=== PATIENT | male | born 1950 | race Caucasian/White ===

== ENCOUNTER 2021-02-04 15:59 | Inpatient (IN) | payer OTHER, SELFPAY ==
[~2021-02-04] VITALS: Ht 157.5 cm; Wt 65.8 kg
[~2021-02-04 15:59] MED LIST: ALFU10TA10 PO; ASA81 PO; CLOP300T2 PO; GLIP5TAB13 PO; LIP40 PO; NOR10 PO; RAMI10CA32 PO; TAMS-11 PO
[2021-02-04 16:06] VITALS: BP_SYST 149
--- NOTE | 2021-02-04 16:26 | NUR ---
Placed in room 4 . Placed on towel sewer, blood pressure machine and pulse oximeter. To gown for exam. Side rails up.
--- NOTE | 2021-02-04 16:30 | NUR ---
ER DR. TRAN AT THE BEDSIDE EXAMINING PT
--- NOTE | 2021-02-04 16:35 | NUR ---
PT BIB C/O LAC TO FOREHEAD. PT WAS UP ON A LATTER OUTSIDE HANGING LIGHTS WHEN HE LOST HIS BALANCE AND FELL. PT HAS LAC TO FOREHEAD, PRESENTS WITH GAUZE IN PLACE, NO ACTIVE BLEEDING UPON ARRIVAL. PT ALSO HAS SMALL ABRASIONS TO RIGHT PALM OF HAND AND RIGHT KHANNA AND KNEE AREA, NO BLEEDING. PT IS AAOX4, V/S STABLE UPON ARRIVAL
[2021-02-04] MEDS ORDERED: DEXTROSE 10%-WATER 500 ML IV SCH (16:45)
--- NOTE | 2021-02-04 17:09 | NUR ---
Patient transported to radiology via GURNEY, accompanied by STAFF.
[2021-02-04 17:26] LABS: BASOPHILS % (AUTO) 0.4 % (0.0-2.0); EOSINOPHILS # (AUTO) 0.1 K/uL (0.0-0.4); HEMATOCRIT 38.9 % (36-54); HEMOGLOBIN 12.3 g/dL (14.0-18.0); LYMPHOCYTES # (AUTO) 2.1 K/uL (1.0-5.5); LYMPHOCYTES % (AUTO) 29.5 % (20.5-51.5); MEAN CORPUSCULAR HEMOGLOBIN 27 pg (27-31); MEAN CORPUSCULAR HGB CONC 32 % (32-36); MEAN CORPUSCULAR VOLUME 86 fL (79.0-98.0); MONOCYTES # (AUTO) 0.6 K/uL (0.0-1.0); MONOCYTES % (AUTO) 7.7 % (1.7-9.3); NEUTROPHILS # (AUTO) 4.4 K/uL (1.8-7.7); NEUTROPHILS % (AUTO) 61.4 % (40.0-70.0); PLATELET COUNT (AUTO) 274 K/uL (130-430); RED BLOOD CELL COUNT(AUTO) 4.51 MIL/uL (4.2-6.2); RED CELL DISTRIBUTION WIDTH 15.4 % (9.0-15.0); WHITE BLOOD COUNT (AUTO) 7.2 K/uL (4.8-10.8)
[2021-02-04] MEDS ORDERED: LIDOCAINE/EPI 1% 1:100000 20 ML VIAL INJ ONE (17:30)
--- NOTE | 2021-02-04 17:30 | NUR ---
Patient has a 2 cm laceration to Right side of forehead. Dr. Gonzales applied sutures using sterile technique. Edges well approximated. Site cleansed with Betadine and NS. Dressing of non-stick applied to site. No bleeding noted. Pt tolerated well.
[2021-02-04] MEDS ORDERED: MUPIROCIN 2% TOPICAL OINTMENT 22 GM NS ONE (18:00)
[2021-02-04 18:03] LABS: ANION GAP 14 (5-15); CALCIUM 9.6 mg/dL (8.4-11.0); CHLORIDE 107 mmol/L (98-107); CREATININE 2.31 mg/dL (0.55-1.30); GLUCOSE 75 mg/dL (70-99); POTASSIUM 4.5 mmol/L (3.5-5.1); SODIUM SERUM 141 mmol/L (136-145); UREA NITROGEN, BLOOD 28 mg/dL (8-21)
--- NOTE | 2021-02-04 18:04 | NUR ---
ADMISSION ORDERS RECEIVED FROM DR. HANKINS
--- NOTE | 2021-02-04 18:06 | NUR ---
Radiology at bedside for CXR.
[2021-02-04 18:07] LABS: ALANINE AMINOTRANSFERASE 28 U/L (12-78); ALBUMIN 3.7 g/dL (3.4-4.8); ASPARTATE AMINOTRANSFERASE 17 U/L (10-37); TOTAL BILIRUBIN 0.3 mg/dL (0.0-1.0)
[2021-02-04] MEDS ORDERED: BACITRACIN 1 GM OINT TP ONE (18:21)
[2021-02-04] MEDS ORDERED: MIRT15TA7 PO (18:23)
[2021-02-04] MEDS ORDERED: METO25TA6 PO (18:23)
[2021-02-04] MEDS ORDERED: OMEP20CA15 PO (18:23)
[2021-02-04] MEDS ORDERED: HYDR-4038 PO (18:23)
[2021-02-04] MEDS ORDERED: RIVA10TA PO (18:23)
[2021-02-04] MEDS ORDERED: INSU100V3 SQ (18:23)
[2021-02-04] MEDS ORDERED: CHOL500052 PO (18:23)
--- NOTE | 2021-02-04 18:45 | NUR ---
COVID SWAB DONE AND SENT
--- NOTE | 2021-02-04 19:10 | NUR ---
REPORT GIVEN TO SUE GUTIERREZ FOR CONTINUING CARE
[2021-02-04 19:16] LABS: INR 1.1 (0.80-1.20); PROTHROMBIN TIME 10.8 SECS (9.5-12.5)
--- NOTE | 2021-02-04 20:09 | NUR ---
[facility] Admitted to [facility]LE unit. Will go to room 104 A. Belongings list completed. Complete and up to date summary report printed. SBAR report to be given at bedside with opportunity for questions.
--- NOTE | 2021-02-04 20:10 | NUR ---
Transfer to TELE via ACLS protocol. Licensed nurse present. IV present no signs or symptoms of infiltration.
--- NOTE | 2021-02-04 20:17 | NUR ---
ADMISSION: The patient, SABRINA CRENSHAW, 70 y/o, M admitted by JESSICA CHACON MD, was given written information regarding hospital policies, unit procedures and contact persons. Valuables were checked and pt was oriented to his room and surrounding.
[2021-02-04 20:30] VITALS: BP_SYST 155
[2021-02-04] MEDS ORDERED: MORPHINE 4 MG INJ. 4 MG/ML VIAL IVP PRN (20:30)
[2021-02-04] MEDS ORDERED: NALOXONE HCL 0.4 MG/ML AMP (NARCAN) IVP PRN (20:30)
[2021-02-04] MEDS ORDERED: ALBUTEROL SULFATE 0.083% 2.5 MG/3 ML VIAL.NEB INH PRN (20:30)
[2021-02-04] MEDS ORDERED: HYDROcodone/ACETAMIN 5-325 MG TAB (NORCO/ VICODIN) PO PRN (20:30)
[2021-02-04] MEDS ORDERED: hydrALAZINE HCL 20 MG/ML VIAL IVP PRN (20:45)
[2021-02-04 20:54] VITALS: BP_SYST 150
[2021-02-04] MEDS: TAMSULOSIN HCL 0.4 MG CAP PO SCH (21:02)
[2021-02-04] MEDS: METOPROLOL TARTRATE 25 MG TABLET PO SCH (21:02)
[2021-02-04] MEDS: D5NS 1,000 ML IV SCH (21:03)
[2021-02-04] MEDS: hydrALAZINE HCL 25 MG TABLET PO SCH (21:03)
[2021-02-05] VITALS: BP_SYST 144
--- NOTE | 2021-02-05 06:46 | NUR ---
PT IS RESTING COMFORTABLY IN BED. ACCUCHECK 150 THIS AM AND NO INSULIN COVERAGE NEEDED. ALL PT'S NEEDS WERE ATTENDED TO. WILL ENDORSE TO DAY SHIFT NURSE.
[2021-02-05 06:52] LABS: BASOPHILS % (AUTO) 0.3 % (0.0-2.0); EOSINOPHILS # (AUTO) 0.1 K/uL (0.0-0.4); EOSINOPHILS % (AUTO) 1.1 % (0.0-4.0); HEMATOCRIT 35.3 % (36-54); HEMOGLOBIN 11.5 g/dL (14.0-18.0); LYMPHOCYTES # (AUTO) 2.5 K/uL (1.0-5.5); LYMPHOCYTES % (AUTO) 31.6 % (20.5-51.5); MEAN CORPUSCULAR HEMOGLOBIN 28 pg (27-31); MEAN CORPUSCULAR HGB CONC 33 % (32-36); MEAN CORPUSCULAR VOLUME 86 fL (79.0-98.0); MONOCYTES # (AUTO) 0.6 K/uL (0.0-1.0); NEUTROPHILS # (AUTO) 4.7 K/uL (1.8-7.7); PLATELET COUNT (AUTO) 237 K/uL (130-430); RED CELL DISTRIBUTION WIDTH 15.6 % (9.0-15.0); WHITE BLOOD COUNT (AUTO) 7.9 K/uL (4.8-10.8)
[2021-02-05 07:24] LABS: ALANINE AMINOTRANSFERASE 22 U/L (12-78); ALBUMIN 3.1 g/dL (3.4-4.8); ANION GAP 13 (5-15); ASPARTATE AMINOTRANSFERASE 11 U/L (10-37); CHLORIDE 110 mmol/L (98-107); CREATININE 2.12 mg/dL (0.55-1.30); GLUCOSE 172 mg/dL (70-99); POTASSIUM 4.3 mmol/L (3.5-5.1); SODIUM SERUM 143 mmol/L (136-145); TOTAL BILIRUBIN 0.3 mg/dL (0.0-1.0); UREA NITROGEN, BLOOD 25 mg/dL (8-21)
[2021-02-05 08:00] VITALS: BP_SYST 142
[2021-02-05] MEDS: lisinopriL 20 MG TABLET PO SCH (09:21)
[2021-02-05] MEDS: ASPIRIN 81 MG TAB.CHEW PO SCH (09:22)
[2021-02-05] MEDS: PANTOPRAZOLE SODIUM 40 MG TAB PO SCH (09:22)
[2021-02-05] MEDS: ATORVASTATIN 20 MG TABLET PO SCH (09:22)
[2021-02-05] MEDS: MIRTAZAPINE 15 MG TABLET PO SCH (09:23)
[2021-02-05] MEDS: amLODIPine BESYLATE 10 MG TABLET PO SCH (09:24)
[2021-02-05] MEDS: METOPROLOL TARTRATE 25 MG TABLET PO SCH ×2 (09:24→21:09)
[2021-02-05] MEDS: hydrALAZINE HCL 25 MG TABLET PO SCH ×2 (09:25→21:10)
--- NOTE | 2021-02-05 10:46 | NUR ---
CONSULTATION: REASON FOR CONSULT: FALL CONSULTING PHYSICIAN: Richard THAYER ORDERED BY: OSWALDO SPOKE WITH [facility] [phone]
[2021-02-05] MEDS: D5NS 1,000 ML IV SCH (11:55)
[2021-02-05] MEDS: INSULIN REGULAR, HUMAN 100 UNITS/ML, 10 ML VIAL (humuLIN R) SUBCUT PRN ×3 (11:57→21:27)
[2021-02-05 12:23] VITALS: BP_SYST 139
--- NOTE | 2021-02-05 13:45 | NUR ---
Attending MD Dr Harper was called, Re: BS is high and to change or discontinue the IV D5W.
--- NOTE | 2021-02-05 14:26 | NUR ---
WOUND EVALUATION: Wound Consult received from Dr. Harper. Thank you, Dr. Harper, for the consult. Patient received in a [place] Bed with an Isoflex HAYLEY mattress, awake, alert, and oriented. Patient is able to turn in bed independently. Taye Score is a 21. Past Medical History: Hypertension, Renal Disease, Diabetes Mellitus, Coronary Artery Disease, Peripheral Arterial Disease, bilateral leg stents, Abdominal Stent, Prostate surgery. 3. Abdominal Stent. Recent Labs: Intrinsic factors that delay wound healing: Extrinsic factors that delay wound healing: Decreased mobility. Microbiology: Wound Assessment: , present on admission. Wound bed is . No odor, no drainage. birdie-wound intact. Measures . Recommend: Cleanse wound with normal saline. Place moisture barrier cream onto birdie-wound. Cover with foam dressing. Perform wound care daily, and as needed for dressing soiling or dislodgement. Also recommend: Reposition patient every 2 hours with pillow support and off-load pressure areas with pillows for pressure re-distribution. Offload, elevate and float bilateral heels with pillows. Perform skin care and monitor skin integrity Q shift. Use moisture barrier cream on buttocks and other moisture susceptible areas QID and as needed for soiling. Place patient on a low air-loss mattress. Addendum: 02/05/21 at 1446 by Twin Gautam RN Error, disregard note as it was entered prematurely. See newer complete note at [id number].
--- NOTE | 2021-02-05 14:33 | NUR ---
WOUND EVALUATION: Wound Consult received from Dr. Harper. Thank you, Dr. Harper, for the consult. Patient received in a [place] Bed with an Isoflex HAYLEY mattress, awake, alert, and oriented. Patient is able to turn in bed independently. Taye Score is a 21. Past Medical History: Hypertension, Renal Disease, Diabetes Mellitus, Coronary Artery Disease, Peripheral Arterial Disease, Prostate surgery, bilateral leg stents, Abdominal Stent. Recent Labs: WBC 7.9, RBC 4.10, hemoglobin 11.5, hematocrit 35.3, chloride 110, BUN 25, creatinine 2.12, glucose 172, POC glucose 326, albumin 3.1. No microbiology reports. Intrinsic factors that delay wound healing: Renal Disease, Diabetes Mellitus, Coronary Artery Disease, Peripheral Arterial Disease. Extrinsic factors that delay wound healing: Decreased mobility. Wound Assessment: 1. Right anterior forehead: Laceration, present on admission. Laceration is approximated with sutures. No odor, no drainage. Recommend: Cleanse laceration with normal saline. Apply nonadherent pad to the laceration, secure with paper tape per spouse's request. Hold nonadherent pad in place with hair net. Perform site care daily, and as needed for dressing soiling or dislodgment. 2. Right lateral forearm: Two small skin tears, present on admission. No odor, no drainage. Ecchymosis present on surrounding tissue. 3. Right lower extremity, inferior and lateral to knee: Skin tear, present on admission. No odor, scant sanguineous drainage. Birdie-skin tear area intact. Recommend: Cleanse skin tears with normal saline. Apply sure prep to birdie-skin tears. Cover with foam dressings. Perform skin tear care daily, and as needed for dressing soiling or dislodgement. Also recommend: Encourage and assist patient as needed with repositioning every 2 hours with pillow support and off-load pressure areas with pillows for pressure re-distribution. Offload, elevate and float bilateral heels with pillows. Perform skin care and monitor skin integrity Q shift.
--- NOTE | 2021-02-05 15:07 | NUR ---
Dietitian Recommendations * Cardiac, CCHO diet w/ Juan BID (supplement provides ~180 kcal/day, 5 gm protein/day) KEVIN, RD Please refer to Nutrition Assessment for details. Addendum: 02/05/21 at [address] Amended: Links added.
[2021-02-05 16:11] VITALS: BP_SYST 139
--- NOTE | 2021-02-05 19:20 | NUR ---
CHANGE OF SHIFT; endorsed by day shift. no distress. pt. fell at home. on fall risk, bed alarm on. call light at bedside.
[2021-02-05 20:15] VITALS: BP_SYST 145
--- NOTE | 2021-02-05 20:15 | NUR ---
NOTES: 'pt. checked, awake, alert, at bedside. pt. speaks Swiss and some lao. denies any pain at this time. IVF infuisng. Vs checked. on residential monitor and shows sinus rhythm. pt. fell at home with bruises and abrasions on rt. knee/child and forearm and some stitches on forehead. on room air. call light within reach.
--- NOTE | 2021-02-05 21:00 | NUR ---
NOTES: Bs checked with sliding scale coverage, due medications taken. due hs snack given. remain at bedside.
[2021-02-05] MEDS: TAMSULOSIN HCL 0.4 MG CAP PO SCH (21:08)
--- NOTE | 2021-02-05 22:00 | NUR ---
NOTES: pt. up and ambulated with to the restroom.
[2021-02-06 00:06] VITALS: BP_SYST 141
--- NOTE | 2021-02-06 00:15 | NUR ---
NOTES: pt. regan paniagua off. repositioned self.
--- NOTE | 2021-02-06 02:30 | NUR ---
NOTES: pt,. awakened, IV alarming. went back to sleep after. pt. call light within reach. bed alarm on.
[2021-02-06] MEDS: D5NS 1,000 ML IV SCH ×2 (04:29→21:03)
--- NOTE | 2021-02-06 05:00 | NUR ---
NOTES: pt. remain sleeping. no acute distress.
[2021-02-06] MEDS: INSULIN REGULAR, HUMAN 100 UNITS/ML, 10 ML VIAL (humuLIN R) SUBCUT PRN ×3 (06:19→21:02)
--- NOTE | 2021-02-06 06:30 | NUR ---
LATE ENTRY/ CLOSING NOTES; pt. remain asleep. IVF patent, infusing continuously. BS checked with sliding scale coverage. for further care and assistance. call light within reach.
[2021-02-06 07:49] LABS: ANION GAP 10 (5-15); CALCIUM 8.7 mg/dL (8.4-11.0); CHLORIDE 109 mmol/L (98-107); GLUCOSE 223 mg/dL (70-99); POTASSIUM 4.6 mmol/L (3.5-5.1); SODIUM SERUM 140 mmol/L (136-145); UREA NITROGEN, BLOOD 20 mg/dL (8-21)
[2021-02-06 07:50] LABS: BASOPHILS % (AUTO) 0.3 % (0.0-2.0); EOSINOPHILS # (AUTO) 0.2 K/uL (0.0-0.4); EOSINOPHILS % (AUTO) 2.8 % (0.0-4.0); HEMATOCRIT 33.5 % (36-54); HEMOGLOBIN 11.1 g/dL (14.0-18.0); LYMPHOCYTES # (AUTO) 2.5 K/uL (1.0-5.5); LYMPHOCYTES % (AUTO) 41.9 % (20.5-51.5); MEAN CORPUSCULAR HEMOGLOBIN 29 pg (27-31); MEAN CORPUSCULAR HGB CONC 33 % (32-36); MEAN CORPUSCULAR VOLUME 86 fL (79.0-98.0); MONOCYTES # (AUTO) 0.5 K/uL (0.0-1.0); MONOCYTES % (AUTO) 8.3 % (1.7-9.3); NEUTROPHILS # (AUTO) 2.8 K/uL (1.8-7.7); NEUTROPHILS % (AUTO) 46.7 % (40.0-70.0); PLATELET COUNT (AUTO) 214 K/uL (130-430); RED CELL DISTRIBUTION WIDTH 15.2 % (9.0-15.0)
[2021-02-06 07:55] LABS: ALANINE AMINOTRANSFERASE 23 U/L (12-78); ALBUMIN 2.9 g/dL (3.4-4.8); ASPARTATE AMINOTRANSFERASE 15 U/L (10-37); TOTAL BILIRUBIN 0.4 mg/dL (0.0-1.0)
[2021-02-06] MEDS: ASPIRIN 81 MG TAB.CHEW PO SCH (09:46)
[2021-02-06] MEDS: ATORVASTATIN 20 MG TABLET PO SCH (09:46)
[2021-02-06] MEDS: MIRTAZAPINE 15 MG TABLET PO SCH (09:46)
[2021-02-06] MEDS: lisinopriL 20 MG TABLET PO SCH (09:47)
[2021-02-06] MEDS: amLODIPine BESYLATE 10 MG TABLET PO SCH (09:48)
[2021-02-06] MEDS: hydrALAZINE HCL 25 MG TABLET PO SCH ×2 (09:48→20:54)
[2021-02-06] MEDS: PANTOPRAZOLE SODIUM 40 MG TAB PO SCH (09:49)
[2021-02-06] MEDS: METOPROLOL TARTRATE 25 MG TABLET PO SCH ×2 (09:49→20:54)
[2021-02-06] MEDS ORDERED: D5W 1,000 ML IV PRN (11:00)
[2021-02-06] MEDS ORDERED: GLUCOSE (DEXTROSE) ORAL GEL -Adults PO PRN (11:00)
[2021-02-06] MEDS ORDERED: DEXTROSE 50% JECT 50 ML DISP.SYRIN IVP PRN (11:00)
[2021-02-06 12:18] VITALS: BP_SYST 143
[2021-02-06 15:13] VITALS: BP_SYST 114
--- NOTE | 2021-02-06 19:30 | NUR ---
CHANGE OF SHIFT; endorsed by day shift. no distress, possible discharge tomorrow. call light within reach. on fall risk, bed alarm on.
--- NOTE | 2021-02-06 20:15 | NUR ---
NOTES; pt. checked, awake, resting with at bedside. no complaints manifested. IVF infusing. on timekeeping supervisor and shows sins rhythm. on room air.
[2021-02-06 20:30] VITALS: BP_SYST 146
[2021-02-06] MEDS: TAMSULOSIN HCL 0.4 MG CAP PO SCH (20:58)
--- NOTE | 2021-02-06 21:00 | NUR ---
NOTES: due medications given. BS checked 279 with sliding scale coverage. still at bedside. due hs snack given. pt. sitting at the edge of the bed.
--- NOTE | 2021-02-07 00:30 | NUR ---
NOTES: pt. up and ambulated to the restroom. no complaints manifested.
[2021-02-07 02:30] VITALS: BP_SYST 135
--- NOTE | 2021-02-07 03:02 | NUR ---
NOTES: IV site infiltrated, nurse William restated anther one on left forearm gauge # 20 and resume IVF> dreesing on rt. forehead with feww stitches changed with non adherent dressing, rt. lateral knne side, z shanta applied on abrasion, foam dressing applied.
[2021-02-07] MEDS: D5NS 1,000 ML IV SCH (06:12)
--- NOTE | 2021-02-07 06:30 | NUR ---
CLOSING NOTES; BS checked with sliding scale. due meds given. IV site patent and continuous. needs attende. went back to sleep. voided per urinal. for further care and assist. call light at bedside.
[2021-02-07] MEDS: INSULIN REGULAR, HUMAN 100 UNITS/ML, 10 ML VIAL (humuLIN R) SUBCUT PRN ×2 (07:06→11:44)
[2021-02-07 07:37] VITALS: BP_SYST 135
[2021-02-07 07:58] VITALS: BP_SYST 137
[2021-02-07] MEDS: PANTOPRAZOLE SODIUM 40 MG TAB PO SCH (08:37)
[2021-02-07] MEDS: hydrALAZINE HCL 25 MG TABLET PO SCH (08:37)
[2021-02-07] MEDS: ASPIRIN 81 MG TAB.CHEW PO SCH (08:37)
[2021-02-07] MEDS: amLODIPine BESYLATE 10 MG TABLET PO SCH (08:38)
[2021-02-07] MEDS: METOPROLOL TARTRATE 25 MG TABLET PO SCH (08:38)
[2021-02-07] MEDS: MIRTAZAPINE 15 MG TABLET PO SCH (08:39)
[2021-02-07] MEDS: lisinopriL 20 MG TABLET PO SCH (08:40)
[2021-02-07] MEDS: ATORVASTATIN 20 MG TABLET PO SCH (08:40)
--- NOTE | 2021-02-07 08:42 | NUR ---
OPENING NOTES PATIENT AAOX 4. LUNGS BILATERALLY CLEAR. ABDOMEN SOFT AND NON DISTENDED. HAS IV ACCESS ON THE LEFT FOREARM #20 WITH D5HNS AT 70CC/HR INFUSING ON WELL. HAS DRESSING ON THE RIGHT FOREAHEAD NON ADHERENT DRESSIB
--- NOTE | 2021-02-07 08:44 | NUR ---
NON ADHERENT DRESSING W/ HAIRNET ON IT ON THE FOREHEAD AND RT FOREARM OPTIFOAM DRESSING DRY AND INTACT. ABLE TO EAT BREAFKAST 100%. NO S/S OF DISTRESS NOR PAIN NOTED. BED LOW POSITION, ALARMED AND LOCKED. CALL LIGHT WITHIN REACH.
--- NOTE | 2021-02-07 10:18 | NUR ---
[employer] SALES REPRESENTATIVE CONSULTANT MS CRISTOBAL GIFFORD CALLED, RE: ARRANGED HOME HEALTH FOR PT, HOME MEDICATION. MS GIFFORD ASKED ME TO FAX H/P, MED LIST, RESULT OF COVID AND THE ORDER FOR HOME HEALTH. FAXED TO [facility]. INFORMED CHARGE NURSE KYM THAT PER [employer] CM MS CRISTOBAL GIFFORD PT CAN BE DISCHARGED NOW.
[2021-02-07 10:34] VITALS: BP_SYST 130
[2021-02-07 10:42] LABS: BASOPHILS % (AUTO) 0.5 % (0.0-2.0); EOSINOPHILS # (AUTO) 0.1 K/uL (0.0-0.4); EOSINOPHILS % (AUTO) 1.9 % (0.0-4.0); HEMATOCRIT 35.2 % (36-54); HEMOGLOBIN 11.5 g/dL (14.0-18.0); LYMPHOCYTES # (AUTO) 1.6 K/uL (1.0-5.5); LYMPHOCYTES % (AUTO) 31.5 % (20.5-51.5); MEAN CORPUSCULAR HEMOGLOBIN 28 pg (27-31); MEAN CORPUSCULAR HGB CONC 33 % (32-36); MEAN CORPUSCULAR VOLUME 87 fL (79.0-98.0); MONOCYTES # (AUTO) 0.5 K/uL (0.0-1.0); MONOCYTES % (AUTO) 10.2 % (1.7-9.3); NEUTROPHILS # (AUTO) 2.9 K/uL (1.8-7.7); NEUTROPHILS % (AUTO) 55.9 % (40.0-70.0); PLATELET COUNT (AUTO) 207 K/uL (130-430); RED BLOOD CELL COUNT(AUTO) 4.07 MIL/uL (4.2-6.2); RED CELL DISTRIBUTION WIDTH 15.4 % (9.0-15.0); WHITE BLOOD COUNT (AUTO) 5.1 K/uL (4.8-10.8)
[2021-02-07 10:49] LABS: ANION GAP 9 (5-15); CALCIUM 8.8 mg/dL (8.4-11.0); CHLORIDE 105 mmol/L (98-107); GLUCOSE 369 mg/dL (70-99); POTASSIUM 4.4 mmol/L (3.5-5.1); SODIUM SERUM 136 mmol/L (136-145); UREA NITROGEN, BLOOD 20 mg/dL (8-21)
--- NOTE | 2021-02-07 12:00 | NUR ---
PATIENT AND REQUESTED TO HAVE LUNCH BEFORE GOING HOME. INFORMED BOTH OF THEM HAS HOME HEALTH TO FOLLOW UP FOR PHYSICAL THERAPY.
--- NOTE | 2021-02-07 13:30 | NUR ---
PATIENT LEFT VIA WHEELCHAIR IN STABLE CONDITION, VITALS SIGNS STABLE. NO S/S DISTRESS NOR PAIN NOTED. DISCHARGE INSTRUCTIONS GIVEN TO THE PATIENT AND REGARDING WOUND CARE FOR THE FOREHEAD, RT ARM, RT LEG. WOUND DRESSING DONE AND PHOTOS TAKEN X 3. [facility] I D BAND REMOVED. IV ACCESS REMOVED. INSTRUCTIONS GIVEN TO PCP FOR ONE WEEK AND CALL TUESDAY FOR APPOINTMENT. VERBALIZED BOTH THE PATIENT AND UNDERSTAND.
--- NOTE | 2021-02-12 13:40 | NUR ---
Patient's called regarding when sutures could be removed. Patient's called to ask about forehead suture removal. Explained that the emergency department recommended 7 to 10 days, with yesterday being the seventh day. Further explained that she could go to the primary care physician or the emergency department to have the sutures removed.
== END 2021-02-07 13:10 | disposition home health service (06) | DRG 604 ==
LOC: SED 15:59 → INTOOBSV 18:05 → STU 18:05 → OBSVTOIN 02-05 18:14
PROVIDERS: ADMIT Internal Medicine Hospice and Palliative Medicine; ATTEND Internal Medicine Hospice and Palliative Medicine
PROC: 0HQ1XZZ Repair Face Skin, External Approach (ICD-10-PCS; principal; 2021-02-05)
DX: S01.81XA Laceration without foreign body of other part of head, initial encounter (principal); N17.0 Acute kidney failure with tubular necrosis; E11.51 Type 2 diabetes mellitus with diabetic peripheral angiopathy without gangrene; E11.649 Type 2 diabetes mellitus with hypoglycemia without coma; I10 Essential (primary) hypertension; Z20.822 Contact with and (suspected) exposure to COVID-19; I25.10 Atherosclerotic heart disease of native coronary artery without angina pectoris; N40.0 Benign prostatic hyperplasia without lower urinary tract symptoms; S09.90XA Unspecified injury of head, initial encounter; S50.811A Abrasion of right forearm, initial encounter; W11.XXXA Fall on and from ladder, initial encounter; Y93.89 Activity, other specified; Y92.89 Other specified places as the place of occurrence of the external cause; Y99.8 Other external cause status; Z79.01 Long term (current) use of anticoagulants; Z79.82 Long term (current) use of aspirin; Z79.4 Long term (current) use of insulin; Z79.899 Other long term (current) drug therapy; Z86.73 Personal history of transient ischemic attack (TIA), and cerebral infarction without residual deficits
CPT/HCPCS: 36415; 70450-TC; 70551; 72125-TC; 73090; 76376; 76770; 80048; 80053; 82962; 84484; 85025; 85610-TC; 93005; 96360; 96361; 97112-GP; 99285; G0378; J1815

== ENCOUNTER 2021-02-19 14:06 | Emergency (ER) | payer OTHER, SELFPAY ==
[~2021-02-19] VITALS: Ht 157.5 cm; Wt 68.9 kg
[~2021-02-19 14:06] MED LIST changes: +CHOL500052 PO; -GLIP5TAB13 PO; +HYDR-4038 PO; +INSU100V3 SQ; +METO25TA6 PO; +MIRT15TA7 PO; +OMEP20CA15 PO; -RAMI10CA32 PO; +RIVA10TA PO
[2021-02-19 14:11] VITALS: BP_SYST 121
[2021-02-19 14:54] VITALS: BP_SYST 121
== END 2021-02-19 14:50 | disposition home or self-care (01) ==
LOC: SED 14:06
DX: S01.81XD Laceration without foreign body of other part of head, subsequent encounter (principal); I10 Essential (primary) hypertension; E11.9 Type 2 diabetes mellitus without complications; Z48.02 Encounter for removal of sutures; Z79.899 Other long term (current) drug therapy; Z79.82 Long term (current) use of aspirin; W18.39XD Other fall on same level, subsequent encounter
CPT/HCPCS: 99281

== ENCOUNTER 2023-06-03 22:13 | Inpatient (IN) | payer OTHER ==
[~2023-06-03] VITALS: Ht 162.6 cm; Wt 69.9 kg
[~2023-06-03 22:13] MED LIST changes: +MIRT-91 PO; -MIRT15TA7 PO
[2023-06-03 22:28] VITALS: BP_SYST 149; PULSE 80; RESP 18; TEMP 97.4; O2SAT 93
[2023-06-03] MEDS ORDERED: NACL 0.9% 1,000 ML IV ONE (23:00)
[2023-06-03 23:23] LABS: BASOPHILS % (AUTO) 0.2 % (0.0-2.0); EOSINOPHILS % (AUTO) 0.2 % (0.0-4.0); HEMATOCRIT 35.3 % (36-54); HEMOGLOBIN 11.4 g/dL (14.0-18.0); LYMPHOCYTES # (AUTO) 0.5 K/uL (1.0-5.5); MEAN CORPUSCULAR HEMOGLOBIN 28 pg (27-31); MEAN CORPUSCULAR HGB CONC 32 % (32-36); MEAN CORPUSCULAR VOLUME 86 fL (79.0-98.0); MONOCYTES # (AUTO) 0.2 K/uL (0.0-1.0); MONOCYTES % (AUTO) 3.7 % (1.7-9.3); NEUTROPHILS # (AUTO) 5.7 K/uL (1.8-7.7); NEUTROPHILS % (AUTO) 88.9 % (40.0-70.0); PLATELET COUNT (AUTO) 202 K/uL (130-430); RED BLOOD CELL COUNT(AUTO) 4.11 MIL/uL (4.2-6.2); RED CELL DISTRIBUTION WIDTH 16.1 % (9.0-15.0); WHITE BLOOD COUNT (AUTO) 6.5 K/uL (4.8-10.8)
[2023-06-03 23:33] LABS: ANION GAP 11 (5-15); CALCIUM 8.8 mg/dL (8.4-11.0); CARBON DIOXIDE 21 mmol/L (23-29); CHLORIDE 100 mmol/L (98-107); CREATININE 2.64 mg/dL (0.55-1.30); GLUCOSE 257 mg/dL (74-106); SODIUM SERUM 132 mmol/L (136-145); UREA NITROGEN, BLOOD 40 mg/dL (8-21)
[2023-06-03 23:47] LABS: ALBUMIN 2.9 g/dL (3.4-4.8); ASPARTATE AMINOTRANSFERASE 16 U/L (10-37); TOTAL BILIRUBIN 0.7 mg/dL (0.0-1.0); TOTAL PROTEIN, SERUM 6.7 g/dL (6.4-8.3)
[2023-06-03 23:56] LABS: ALANINE AMINOTRANSFERASE 29 U/L (12-78)
[2023-06-04 00:31] LABS: BILIRUBIN,URINE NEGATIVE (NEGATIVE); BLOOD, URINE 2+ (NEGATIVE); CLARITY/URINE CLEAR (CLEAR); COLOR,URINE YELLOW (YELLOW); GLUCOSE,URINE NEGATIVE (NEGATIVE); KETONES,URINE NEGATIVE (NEGATIVE); LEUKOCYTE ESTERASE ,URINE 2+ (NEGATIVE); NITRITE, URINE NEGATIVE (NEGATIVE); PROTEIN URINE 2+ (NEGATIVE); UROBILINOGEN,URINE 0.2 (0.2-1.0)
[2023-06-04 00:42] LABS: BACTERIA,URINE MODERATE /HPF (None Seen); RBC,URINE >100 /HPF (0-3); WBC,URINE >100 /HPF (0-3)
[2023-06-04] MEDS ORDERED: ONDANSETRON HCL 4 MG/2 ML VIAL IVP ONE (00:45)
[2023-06-04] MEDS ORDERED: cefTRIAXone 1 GM in D5W 50 ML IV ONE (01:00)
[2023-06-04] MEDS ORDERED: cefTRIAXone 1 GM VIAL ONE (01:19)
[2023-06-04] MEDS ORDERED: RAMI10CA42 PO (01:52)
[2023-06-04 01:54] LABS: INFLUENZA TYPE A Negative (NEGATIVE); INFLUENZA TYPE B NEGATIVE (NEGATIVE)
[2023-06-04] MEDS ORDERED: ESCI10TA PO (01:55)
[2023-06-04] MEDS ORDERED: TRAZ-250 PO (01:55)
[2023-06-04] MEDS ORDERED: FURO-150 PO (01:55)
[2023-06-04] MEDS: 0.45% NACL 1,000 ML IV SCH ×2 (02:06→11:15)
[2023-06-04 02:34] VITALS: O2SAT 98
[2023-06-04 08:30] VITALS: BP_SYST 141; PULSE 82; RESP 22; TEMP 100; O2SAT 87
[2023-06-04] MEDS: TAMSULOSIN HCL 0.4 MG CAP PO SCH (09:26)
[2023-06-04] MEDS ORDERED: ONDANSETRON HCL 4 MG/2 ML VIAL IVP PRN (10:45)
[2023-06-04] MEDS ORDERED: NALOXONE HCL 0.4 MG/ML AMP (NARCAN) IVP PRN ×2 (10:45)
[2023-06-04] MEDS ORDERED: LORazepam 2 MG/ML VIAL IVP PRN (10:45)
[2023-06-04] MEDS ORDERED: HYDROcodone/ACETAMIN 5-325 MG TAB (NORCO/ VICODIN) PO PRN ×2 (10:45)
[2023-06-04 11:20] LABS: BASOPHILS % (AUTO) 0.3 % (0.0-2.0); EOSINOPHILS % (AUTO) 0.1 % (0.0-4.0); HEMATOCRIT 34.2 % (36-54); LYMPHOCYTES # (AUTO) 0.9 K/uL (1.0-5.5); LYMPHOCYTES % (AUTO) 9.3 % (20.5-51.5); MEAN CORPUSCULAR HEMOGLOBIN 28 pg (27-31); MEAN CORPUSCULAR HGB CONC 32 % (32-36); MEAN CORPUSCULAR VOLUME 87 fL (79.0-98.0); MONOCYTES # (AUTO) 0.8 K/uL (0.0-1.0); MONOCYTES % (AUTO) 8.5 % (1.7-9.3); NEUTROPHILS # (AUTO) 7.6 K/uL (1.8-7.7); NEUTROPHILS % (AUTO) 81.8 % (40.0-70.0); PLATELET COUNT (AUTO) 189 K/uL (130-430); RED BLOOD CELL COUNT(AUTO) 3.95 MIL/uL (4.2-6.2); RED CELL DISTRIBUTION WIDTH 16.4 % (9.0-15.0)
[2023-06-04 11:22] LABS: WHITE BLOOD COUNT (AUTO) 9.3 K/uL (4.8-10.8)
[2023-06-04 11:28] LABS: ANION GAP 10 (5-15); CALCIUM 8.7 mg/dL (8.4-11.0); CARBON DIOXIDE 22 mmol/L (23-29); CHLORIDE 101 mmol/L (98-107); CREATININE 2.87 mg/dL (0.55-1.30); GLUCOSE 226 mg/dL (74-106); POTASSIUM 5.1 mmol/L (3.5-5.1); SODIUM SERUM 133 mmol/L (136-145); UREA NITROGEN, BLOOD 43 mg/dL (8-21)
[2023-06-04 12:01] VITALS: BP_SYST 139; PULSE 75; RESP 18; TEMP 98.2; O2SAT 92
[2023-06-04] MEDS ORDERED: cefTRIAXone 1 GM IVPB PREMIX 50 ML IV SCH (13:00)
[2023-06-04] MEDS: INSULIN REGULAR, HUMAN 100 UNITS/ML, 3 ML VIAL (humuLIN R) SUBCUT PRN ×2 (13:11→20:45)
[2023-06-04] MEDS: D5/0.45 NS 1,000 ML IV SCH ×3 (13:16→23:36)
[2023-06-04 20:00] VITALS: BP_SYST 149; PULSE 66; RESP 18; TEMP 100.9; O2SAT 92
[2023-06-04] MEDS: ACETAMINOPHEN 325 MG TABLET PO PRN (22:40)
[2023-06-05] VITALS (10 sets, daily range): BP systolic 122–164; PULSE 70–89; RESP 17–22; TEMP 99.3–100.3; O2SAT 88–96
[2023-06-05] MEDS: INSULIN REGULAR, HUMAN 100 UNITS/ML, 3 ML VIAL (humuLIN R) SUBCUT PRN ×4 (05:49→21:08)
[2023-06-05 06:31] LABS: BASOPHILS % (AUTO) 0.6 % (0.0-2.0); EOSINOPHILS # (AUTO) 0.1 K/uL (0.0-0.4); EOSINOPHILS % (AUTO) 0.8 % (0.0-4.0); HEMATOCRIT 34.3 % (36-54); HEMOGLOBIN 11.1 g/dL (14.0-18.0); LYMPHOCYTES # (AUTO) 1.6 K/uL (1.0-5.5); LYMPHOCYTES % (AUTO) 18.2 % (20.5-51.5); MEAN CORPUSCULAR HEMOGLOBIN 28 pg (27-31); MEAN CORPUSCULAR HGB CONC 32 % (32-36); MEAN CORPUSCULAR VOLUME 86 fL (79.0-98.0); MONOCYTES % (AUTO) 11.1 % (1.7-9.3); NEUTROPHILS # (AUTO) 6.1 K/uL (1.8-7.7); NEUTROPHILS % (AUTO) 69.3 % (40.0-70.0); PLATELET COUNT (AUTO) 179 K/uL (130-430); RED BLOOD CELL COUNT(AUTO) 3.99 MIL/uL (4.2-6.2); RED CELL DISTRIBUTION WIDTH 16.2 % (9.0-15.0); WHITE BLOOD COUNT (AUTO) 8.8 K/uL (4.8-10.8)
[2023-06-05 06:32] LABS: ANION GAP 9 (5-15); CALCIUM 8.9 mg/dL (8.4-11.0); CARBON DIOXIDE 22 mmol/L (23-29); CHLORIDE 96 mmol/L (98-107); GLUCOSE 269 mg/dL (74-106); PHOSPHORUS 2.9 mg/dL (2.7-4.5); POTASSIUM 4.7 mmol/L (3.5-5.1); SODIUM SERUM 127 mmol/L (136-145); UREA NITROGEN, BLOOD 43 mg/dL (8-21)
[2023-06-05] MEDS: TAMSULOSIN HCL 0.4 MG CAP PO SCH (08:58)
[2023-06-05] MEDS ORDERED: cefTRIAXone 1 GM IVPB PREMIX 50 ML IV SCH ×2 (09:00)
[2023-06-05] MEDS: 0.45% NACL 1,000 ML IV SCH ×2 (09:06→17:15)
[2023-06-05] MEDS: ACETAMINOPHEN 325 MG TABLET PO PRN (09:55)
[2023-06-05] MEDS ORDERED: MEROPENEM 500 MG in NS 50 ML IV STA (10:15)
[2023-06-05] MEDS: MEROPENEM 1 GM in NS 100 ML IV SCH ×2 (11:11→23:48)
[2023-06-05] MEDS: ALBUTEROL SULFATE 0.083% 2.5 MG/3 ML VIAL.NEB INH SCH ×4 (11:29→23:27)
[2023-06-05] MEDS: IPRATROPIUM BROM 0.5 MG/2.5 ML VIAL.NEB (ATROVENT) INH SCH ×4 (11:29→23:27)
[2023-06-06] VITALS (15 sets, daily range): BP systolic 132–188; PULSE 64–88; RESP 17–30; TEMP 98.4–101.5; O2SAT 73–99
[2023-06-06] MEDS: ACETAMINOPHEN 325 MG TABLET PO PRN ×3 (00:46→16:33)
[2023-06-06] MEDS: NACL 0.9% 1,000 ML IV SCH ×2 (00:52→08:50)
[2023-06-06] MEDS: ALBUTEROL SULFATE 0.083% 2.5 MG/3 ML VIAL.NEB INH SCH ×6 (03:35→23:38)
[2023-06-06] MEDS: IPRATROPIUM BROM 0.5 MG/2.5 ML VIAL.NEB (ATROVENT) INH SCH ×6 (03:36→23:38)
[2023-06-06 05:16] LABS: ERYTHROCYTE SEDIMENTATION RATE 50 MM/HR (0-15)
[2023-06-06 05:20] LABS: BASOPHILS % (AUTO) 0.4 % (0.0-2.0); EOSINOPHILS % (AUTO) 0.1 % (0.0-4.0); HEMATOCRIT 32.2 % (36-54); HEMOGLOBIN 10.4 g/dL (14.0-18.0); LYMPHOCYTES # (AUTO) 1.2 K/uL (1.0-5.5); LYMPHOCYTES % (AUTO) 18.9 % (20.5-51.5); MEAN CORPUSCULAR HEMOGLOBIN 28 pg (27-31); MEAN CORPUSCULAR HGB CONC 32 % (32-36); MEAN CORPUSCULAR VOLUME 86 fL (79.0-98.0); MONOCYTES # (AUTO) 0.8 K/uL (0.0-1.0); MONOCYTES % (AUTO) 11.6 % (1.7-9.3); NEUTROPHILS # (AUTO) 4.5 K/uL (1.8-7.7); PLATELET COUNT (AUTO) 173 K/uL (130-430); RED BLOOD CELL COUNT(AUTO) 3.76 MIL/uL (4.2-6.2); RED CELL DISTRIBUTION WIDTH 16.4 % (9.0-15.0); WHITE BLOOD COUNT (AUTO) 6.6 K/uL (4.8-10.8)
[2023-06-06 05:44] LABS: ALANINE AMINOTRANSFERASE 27 U/L (12-78); ALBUMIN 2.3 g/dL (3.4-4.8); ANION GAP 13 (5-15); ASPARTATE AMINOTRANSFERASE 21 U/L (10-37); CARBON DIOXIDE 19 mmol/L (23-29); CHLORIDE 92 mmol/L (98-107); CREATININE 2.75 mg/dL (0.55-1.30); GLUCOSE 260 mg/dL (74-106); PHOSPHORUS 3.5 mg/dL (2.7-4.5); POTASSIUM 4.7 mmol/L (3.5-5.1); SODIUM SERUM 124 mmol/L (136-145); TOTAL BILIRUBIN 0.5 mg/dL (0.0-1.0); TOTAL PROTEIN, SERUM 6.3 g/dL (6.4-8.3); UREA NITROGEN, BLOOD 39 mg/dL (8-21)
[2023-06-06] MEDS: INSULIN REGULAR, HUMAN 100 UNITS/ML, 3 ML VIAL (humuLIN R) SUBCUT PRN ×3 (06:28→20:39)
[2023-06-06] MEDS: TAMSULOSIN HCL 0.4 MG CAP PO SCH (08:59)
[2023-06-06] MEDS ORDERED: FUROSEMIDE 20 MG/2 ML VIAL IVP ONE (12:45)
[2023-06-06] MEDS ORDERED: CEFEPIME 2 GM in D5W 100 ML IV SCH (13:00)
[2023-06-06 16:37] LABS: BLOOD GAS PCO2 24.1 mmHg (32.0-45.0)
[2023-06-06 16:38] LABS: ABG O2 SAT% ESTIMATE 85.2 % (94.0-100.0); BLOOD GAS BASE EXCESS -3.3 mmol/L (-3.0-3.0); BLOOD GAS PO2 44.5 mmHg (75.0-100.0)
[2023-06-06 16:40] LABS: ALLEN'S TEST POSITIVE (P)
[2023-06-06] MEDS ORDERED: FUROSEMIDE 20 MG/2 ML VIAL IVP SCH (21:00)
[2023-06-07] VITALS (29 sets, daily range): BP systolic 127–186; PULSE 63–84; RESP 14–24; TEMP 97.8–98.3; O2SAT 93–100
[2023-06-07] MEDS: IPRATROPIUM BROM 0.5 MG/2.5 ML VIAL.NEB (ATROVENT) INH SCH ×6 (03:43→23:25)
[2023-06-07] MEDS: ALBUTEROL SULFATE 0.083% 2.5 MG/3 ML VIAL.NEB INH SCH ×6 (03:43→23:24)
[2023-06-07 04:40] LABS: HEMATOCRIT 35.9 % (36-54); WHITE BLOOD COUNT (AUTO) 5.6 K/uL (4.8-10.8)
[2023-06-07 04:59] LABS: BASOPHILS % (AUTO) 0.4 % (0.0-2.0); EOSINOPHILS % (AUTO) 0.3 % (0.0-4.0); HEMOGLOBIN 11.7 g/dL (14.0-18.0); LYMPHOCYTES # (AUTO) 1.1 K/uL (1.0-5.5); LYMPHOCYTES % (AUTO) 19.6 % (20.5-51.5); MEAN CORPUSCULAR HEMOGLOBIN 28 pg (27-31); MEAN CORPUSCULAR HGB CONC 33 % (32-36); MEAN CORPUSCULAR VOLUME 85 fL (79.0-98.0); MONOCYTES # (AUTO) 0.8 K/uL (0.0-1.0); NEUTROPHILS # (AUTO) 3.7 K/uL (1.8-7.7); NEUTROPHILS % (AUTO) 65.7 % (40.0-70.0); PLATELET COUNT (AUTO) 193 K/uL (130-430); RED BLOOD CELL COUNT(AUTO) 4.25 MIL/uL (4.2-6.2); RED CELL DISTRIBUTION WIDTH 16.1 % (9.0-15.0)
[2023-06-07 05:01] LABS: ANION GAP 11 (5-15); CALCIUM 10.1 mg/dL (8.4-11.0); CARBON DIOXIDE 26 mmol/L (23-29); CHLORIDE 97 mmol/L (98-107); CREATININE 2.72 mg/dL (0.55-1.30); GLUCOSE 242 mg/dL (74-106); POTASSIUM 4.2 mmol/L (3.5-5.1); SODIUM SERUM 134 mmol/L (136-145); UREA NITROGEN, BLOOD 39 mg/dL (8-21)
[2023-06-07] MEDS: INSULIN REGULAR, HUMAN 100 UNITS/ML, 3 ML VIAL (humuLIN R) SUBCUT PRN ×4 (06:23→20:54)
[2023-06-07] MEDS: NACL 0.9% 1,000 ML IV SCH ×2 (08:50→20:50)
[2023-06-07] MEDS: HEPARIN SODIUM,PORCINE 5,000 UNITS/ML VIAL SUBCUT SCH ×2 (09:17→20:53)
[2023-06-07] MEDS: TAMSULOSIN HCL 0.4 MG CAP PO SCH (09:18)
[2023-06-07] MEDS: FUROSEMIDE 20 MG/2 ML VIAL IVP SCH ×2 (09:20→20:51)
[2023-06-07] MEDS: ACETAMINOPHEN 325 MG TABLET PO PRN ×2 (15:09→16:24)
[2023-06-07] MEDS: MEROPENEM 500 MG in NS 50 ML IV SCH (20:51)
[2023-06-08] VITALS (28 sets, daily range): BP systolic 122–169; PULSE 70–94; RESP 13–24; TEMP 97.2–99; O2SAT 90–99
[2023-06-08] MEDS: ALBUTEROL SULFATE 0.083% 2.5 MG/3 ML VIAL.NEB INH SCH ×4 (04:24→14:36)
[2023-06-08] MEDS: IPRATROPIUM BROM 0.5 MG/2.5 ML VIAL.NEB (ATROVENT) INH SCH ×4 (04:24→14:36)
[2023-06-08 04:44] LABS: BASOPHILS % (AUTO) 0.3 % (0.0-2.0); EOSINOPHILS % (AUTO) 0.2 % (0.0-4.0); HEMATOCRIT 37.2 % (36-54); HEMOGLOBIN 12.2 g/dL (14.0-18.0); LYMPHOCYTES # (AUTO) 1.3 K/uL (1.0-5.5); LYMPHOCYTES % (AUTO) 19.8 % (20.5-51.5); MEAN CORPUSCULAR HEMOGLOBIN 28 pg (27-31); MEAN CORPUSCULAR HGB CONC 33 % (32-36); MEAN CORPUSCULAR VOLUME 84 fL (79.0-98.0); MONOCYTES # (AUTO) 1.1 K/uL (0.0-1.0); MONOCYTES % (AUTO) 16.1 % (1.7-9.3); NEUTROPHILS # (AUTO) 4.3 K/uL (1.8-7.7); NEUTROPHILS % (AUTO) 63.6 % (40.0-70.0); PLATELET COUNT (AUTO) 212 K/uL (130-430); RED CELL DISTRIBUTION WIDTH 16.1 % (9.0-15.0); WHITE BLOOD COUNT (AUTO) 6.8 K/uL (4.8-10.8)
[2023-06-08 05:07] LABS: ANION GAP 14 (5-15); CALCIUM 10.3 mg/dL (8.4-11.0); CARBON DIOXIDE 25 mmol/L (23-29); CHLORIDE 97 mmol/L (98-107); CREATININE 2.94 mg/dL (0.55-1.30); GLUCOSE 312 mg/dL (74-106); SODIUM SERUM 136 mmol/L (136-145); UREA NITROGEN, BLOOD 51 mg/dL (8-21)
[2023-06-08] MEDS: INSULIN REGULAR, HUMAN 100 UNITS/ML, 3 ML VIAL (humuLIN R) SUBCUT PRN ×4 (06:10→20:20)
[2023-06-08] MEDS: FUROSEMIDE 20 MG/2 ML VIAL IVP SCH ×2 (08:44→20:18)
[2023-06-08] MEDS: HEPARIN SODIUM,PORCINE 5,000 UNITS/ML VIAL SUBCUT SCH ×2 (08:46→20:21)
[2023-06-08] MEDS: TAMSULOSIN HCL 0.4 MG CAP PO SCH (08:47)
[2023-06-08] MEDS: MEROPENEM 500 MG in NS 50 ML IV SCH ×2 (08:48→20:16)
[2023-06-08 09:19] LABS: ABG O2 SAT% ESTIMATE 98.4 % (94.0-100.0); BLOOD GAS BASE EXCESS 4.1 mmol/L (-3.0-3.0); BLOOD GAS HCO3 23.1 mmol/L (21.0-27.0); BLOOD GAS PCO2 22.1 mmHg (32.0-45.0); BLOOD GAS PO2 94.9 mmHg (75.0-100.0)
[2023-06-08 09:25] LABS: ALLEN'S TEST POSITIVE (P); BLOOD GAS PH 7.637 (7.350-7.450)
[2023-06-08] MEDS ORDERED: ALBUTEROL SULFATE 0.083% 2.5 MG/3 ML VIAL.NEB INH PRN (14:45)
[2023-06-08] MEDS ORDERED: IPRATROPIUM BROM 0.5 MG/2.5 ML VIAL.NEB (ATROVENT) INH PRN (14:45)
[2023-06-08] MEDS: METHYLPREDNISOLONE SOD SUCC 40 MG/ML VIAL IVP SCH (20:16)
[2023-06-09] VITALS (26 sets, daily range): BP systolic 99–200; PULSE 53–90; RESP 8–30; TEMP 96.7–98.8; O2SAT 92–98
[2023-06-09 04:38] LABS: BASOPHILS % (AUTO) 0.2 % (0.0-2.0); EOSINOPHILS % (AUTO) 0.1 % (0.0-4.0); HEMATOCRIT 41.1 % (36-54); HEMOGLOBIN 13.2 g/dL (14.0-18.0); LYMPHOCYTES # (AUTO) 1.4 K/uL (1.0-5.5); MEAN CORPUSCULAR HEMOGLOBIN 28 pg (27-31); MEAN CORPUSCULAR HGB CONC 32 % (32-36); MEAN CORPUSCULAR VOLUME 86 fL (79.0-98.0); MONOCYTES # (AUTO) 0.3 K/uL (0.0-1.0); MONOCYTES % (AUTO) 4.1 % (1.7-9.3); NEUTROPHILS # (AUTO) 4.9 K/uL (1.8-7.7); NEUTROPHILS % (AUTO) 74.6 % (40.0-70.0); PLATELET COUNT (AUTO) 230 K/uL (130-430); RED BLOOD CELL COUNT(AUTO) 4.76 MIL/uL (4.2-6.2); RED CELL DISTRIBUTION WIDTH 16.4 % (9.0-15.0); WHITE BLOOD COUNT (AUTO) 6.5 K/uL (4.8-10.8)
[2023-06-09 04:54] LABS: ANION GAP 16 (5-15); CALCIUM 10.6 mg/dL (8.4-11.0); CARBON DIOXIDE 28 mmol/L (23-29); CHLORIDE 96 mmol/L (98-107); CREATININE 3.03 mg/dL (0.55-1.30); GLUCOSE 263 mg/dL (74-106); POTASSIUM 4.2 mmol/L (3.5-5.1); SODIUM SERUM 140 mmol/L (136-145); UREA NITROGEN, BLOOD 63 mg/dL (8-21)
[2023-06-09] MEDS: INSULIN REGULAR, HUMAN 100 UNITS/ML, 3 ML VIAL (humuLIN R) SUBCUT PRN ×4 (06:49→21:51)
[2023-06-09] MEDS: TAMSULOSIN HCL 0.4 MG CAP PO SCH (08:17)
[2023-06-09] MEDS: METHYLPREDNISOLONE SOD SUCC 40 MG/ML VIAL IVP SCH ×2 (08:20→21:45)
[2023-06-09] MEDS: HEPARIN SODIUM,PORCINE 5,000 UNITS/ML VIAL SUBCUT SCH ×2 (08:20→21:51)
[2023-06-09] MEDS: FUROSEMIDE 20 MG/2 ML VIAL IVP SCH (08:21)
[2023-06-09] MEDS: MEROPENEM 500 MG in NS 50 ML IV SCH ×2 (08:24→21:44)
[2023-06-09] MEDS: NACL 0.9% 1,000 ML IV SCH (08:50)
[2023-06-09] MEDS ORDERED: INSULIN REGULAR, HUMAN 10 UNITS/0.1 ML, 3 ML VIAL IVP ONE (12:45)
[2023-06-09] MEDS ORDERED: COMMUNICATION ORDER XX ONE (12:45)
[2023-06-09] MEDS ORDERED: cloNIDine HCL 0.1 MG TABLET PO PRN (23:15)
[2023-06-10] VITALS (24 sets, daily range): BP systolic 133–174; PULSE 50–174; RESP 9–58; TEMP 96.9–97.9; O2SAT 91–99
[2023-06-10 04:41] LABS: BASOPHILS % (AUTO) 0.1 % (0.0-2.0); HEMATOCRIT 36.8 % (36-54); LYMPHOCYTES # (AUTO) 1.5 K/uL (1.0-5.5); LYMPHOCYTES % (AUTO) 14.1 % (20.5-51.5); MEAN CORPUSCULAR HEMOGLOBIN 28 pg (27-31); MEAN CORPUSCULAR HGB CONC 33 % (32-36); MEAN CORPUSCULAR VOLUME 85 fL (79.0-98.0); MONOCYTES # (AUTO) 0.4 K/uL (0.0-1.0); MONOCYTES % (AUTO) 4.1 % (1.7-9.3); NEUTROPHILS # (AUTO) 8.5 K/uL (1.8-7.7); NEUTROPHILS % (AUTO) 81.7 % (40.0-70.0); PLATELET COUNT (AUTO) 258 K/uL (130-430); RED BLOOD CELL COUNT(AUTO) 4.35 MIL/uL (4.2-6.2); RED CELL DISTRIBUTION WIDTH 15.9 % (9.0-15.0); WHITE BLOOD COUNT (AUTO) 10.4 K/uL (4.8-10.8)
[2023-06-10 05:01] LABS: ANION GAP 15 (5-15); CALCIUM 9.9 mg/dL (8.4-11.0); CARBON DIOXIDE 26 mmol/L (23-29); CHLORIDE 92 mmol/L (98-107); CREATININE 2.66 mg/dL (0.55-1.30); GLUCOSE 144 mg/dL (74-106); POTASSIUM 3.8 mmol/L (3.5-5.1); SODIUM SERUM 133 mmol/L (136-145); UREA NITROGEN, BLOOD 80 mg/dL (8-21)
[2023-06-10] MEDS: INSULIN REGULAR, HUMAN 100 UNITS/ML, 3 ML VIAL (humuLIN R) SUBCUT PRN ×3 (06:27→17:29)
[2023-06-10] MEDS: NACL 0.9% 1,000 ML IV SCH (08:50)
[2023-06-10] MEDS: MEROPENEM 500 MG in NS 50 ML IV SCH ×2 (09:06→21:00)
[2023-06-10] MEDS: HEPARIN SODIUM,PORCINE 5,000 UNITS/ML VIAL SUBCUT SCH ×2 (09:10→20:55)
[2023-06-10] MEDS: TAMSULOSIN HCL 0.4 MG CAP PO SCH (09:11)
[2023-06-10] MEDS: METHYLPREDNISOLONE SOD SUCC 40 MG/ML VIAL IVP SCH (11:55)
[2023-06-10] MEDS ORDERED: METHYLPREDNISOLONE SOD SUCC 40 MG/ML VIAL IVP ONE (18:00)
[2023-06-10] MEDS: ACETAMINOPHEN 325 MG TABLET PO PRN (20:59)
[2023-06-10] MEDS ORDERED: INSULIN GLARGINE 100 UNITS/ML, 10 ML VIAL SUBCUT SCH (21:00)
[2023-06-10] MEDS: hydrALAZINE HCL 20 MG/ML VIAL IVP PRN (21:31)
[2023-06-11] VITALS (7 sets, daily range): BP systolic 134–164; PULSE 53–74; RESP 15–23; TEMP 96.9–98.2; O2SAT 94–99
[2023-06-11] MEDS: INSULIN REGULAR, HUMAN 100 UNITS/ML, 3 ML VIAL (humuLIN R) SUBCUT PRN ×3 (06:29→17:10)
[2023-06-11 06:31] LABS: ALANINE AMINOTRANSFERASE 53 U/L (12-78); ALBUMIN 2.4 g/dL (3.4-4.8); ANION GAP 14 (5-15); ASPARTATE AMINOTRANSFERASE 32 U/L (10-37); CALCIUM 9.2 mg/dL (8.4-11.0); CARBON DIOXIDE 22 mmol/L (23-29); CHLORIDE 93 mmol/L (98-107); CREATININE 2.52 mg/dL (0.55-1.30); POTASSIUM 4.4 mmol/L (3.5-5.1); SODIUM SERUM 129 mmol/L (136-145); TOTAL BILIRUBIN 0.6 mg/dL (0.0-1.0); TOTAL PROTEIN, SERUM 6.6 g/dL (6.4-8.3); UREA NITROGEN, BLOOD 83 mg/dL (8-21)
[2023-06-11 07:10] LABS: GLUCOSE 477 mg/dL (74-106)
[2023-06-11] MEDS: HEPARIN SODIUM,PORCINE 5,000 UNITS/ML VIAL SUBCUT SCH ×2 (08:47→20:07)
[2023-06-11] MEDS: TAMSULOSIN HCL 0.4 MG CAP PO SCH (08:48)
[2023-06-11] MEDS: MEROPENEM 500 MG in NS 50 ML IV SCH (08:48)
[2023-06-11 08:53] LABS: BASOPHILS % (AUTO) 0.1 % (0.0-2.0); HEMATOCRIT 37.7 % (36-54); HEMOGLOBIN 12.1 g/dL (14.0-18.0); LYMPHOCYTES # (AUTO) 1.2 K/uL (1.0-5.5); LYMPHOCYTES % (AUTO) 10.6 % (20.5-51.5); MEAN CORPUSCULAR HEMOGLOBIN 28 pg (27-31); MEAN CORPUSCULAR HGB CONC 32 % (32-36); MEAN CORPUSCULAR VOLUME 86 fL (79.0-98.0); MONOCYTES # (AUTO) 0.4 K/uL (0.0-1.0); MONOCYTES % (AUTO) 3.3 % (1.7-9.3); NEUTROPHILS # (AUTO) 9.4 K/uL (1.8-7.7); PLATELET COUNT (AUTO) 277 K/uL (130-430); RED BLOOD CELL COUNT(AUTO) 4.41 MIL/uL (4.2-6.2); WHITE BLOOD COUNT (AUTO) 10.9 K/uL (4.8-10.8)
[2023-06-11] MEDS ORDERED: METHYLPREDNISOLONE SOD SUCC 40 MG/ML VIAL IVP SCH (09:00)
[2023-06-11] MEDS ORDERED: INSULIN GLARGINE 100 UNITS/ML, 10 ML VIAL SUBCUT ONE (09:30)
[2023-06-11 09:40] LABS: HEMOGLOBIN A1C 9.62 % (<5.7)
[2023-06-11] MEDS: NACL 0.9% 1,000 ML IV SCH (09:54)
[2023-06-11] MEDS: ALBUMIN HUMAN 25% 100 ML IV SCH ×2 (13:41→20:01)
[2023-06-11] MEDS: hydrALAZINE HCL 20 MG/ML VIAL IVP PRN ×2 (13:56→22:34)
[2023-06-11] MEDS: INSULIN GLARGINE 100 UNITS/ML, 10 ML VIAL SUBCUT SCH (20:12)
[2023-06-11] MEDS: ERTAPENEM SODIUM 0.5 GM in NS 50 ML IV SCH (22:26)
[2023-06-11] MEDS: PANTOPRAZOLE SODIUM 40 MG/VIAL (PROTONIX) IVP SCH (22:45)
[2023-06-11] MEDS ORDERED: CALCIUM CARBONATE 500 MG/ TAB.CHEW PO PRN (23:00)
[2023-06-12] VITALS (8 sets, daily range): BP systolic 130–162; PULSE 52–62; RESP 13–24; TEMP 97.2–97.8; O2SAT 93–98
[2023-06-12] MEDS: ALBUMIN HUMAN 25% 100 ML IV SCH (00:46)
[2023-06-12] MEDS: PANTOPRAZOLE SODIUM 40 MG/VIAL (PROTONIX) IVP SCH (08:47)
[2023-06-12] MEDS: HEPARIN SODIUM,PORCINE 5,000 UNITS/ML VIAL SUBCUT SCH ×2 (08:49→23:23)
[2023-06-12 08:50] LABS: BASOPHILS % (AUTO) 0.1 % (0.0-2.0); EOSINOPHILS % (AUTO) 0.2 % (0.0-4.0); HEMATOCRIT 33.9 % (36-54); HEMOGLOBIN 10.8 g/dL (14.0-18.0); LYMPHOCYTES # (AUTO) 2.1 K/uL (1.0-5.5); LYMPHOCYTES % (AUTO) 24.6 % (20.5-51.5); MEAN CORPUSCULAR HEMOGLOBIN 27 pg (27-31); MEAN CORPUSCULAR HGB CONC 32 % (32-36); MEAN CORPUSCULAR VOLUME 85 fL (79.0-98.0); MONOCYTES # (AUTO) 0.5 K/uL (0.0-1.0); MONOCYTES % (AUTO) 5.4 % (1.7-9.3); NEUTROPHILS % (AUTO) 69.7 % (40.0-70.0); PLATELET COUNT (AUTO) 250 K/uL (130-430); RED BLOOD CELL COUNT(AUTO) 3.99 MIL/uL (4.2-6.2); RED CELL DISTRIBUTION WIDTH 15.9 % (9.0-15.0); WHITE BLOOD COUNT (AUTO) 8.5 K/uL (4.8-10.8)
[2023-06-12] MEDS: TAMSULOSIN HCL 0.4 MG CAP PO SCH (08:50)
[2023-06-12] MEDS: METHYLPREDNISOLONE SOD SUCC 40 MG/ML VIAL IVP SCH (08:50)
[2023-06-12 09:10] LABS: ALANINE AMINOTRANSFERASE 40 U/L (12-78); ALBUMIN 3.3 g/dL (3.4-4.8); ANION GAP 9 (5-15); ASPARTATE AMINOTRANSFERASE 26 U/L (10-37); CALCIUM 9.5 mg/dL (8.4-11.0); CARBON DIOXIDE 24 mmol/L (23-29); CHLORIDE 103 mmol/L (98-107); CREATININE 1.89 mg/dL (0.55-1.30); GLUCOSE 137 mg/dL (74-106); POTASSIUM 3.7 mmol/L (3.5-5.1); SODIUM SERUM 136 mmol/L (136-145); TOTAL BILIRUBIN 0.9 mg/dL (0.0-1.0); TOTAL PROTEIN, SERUM 6.3 g/dL (6.4-8.3); UREA NITROGEN, BLOOD 63 mg/dL (8-21)
[2023-06-12] MEDS: NACL 0.9% 1,000 ML IV SCH (10:13)
[2023-06-12] MEDS: hydrALAZINE HCL 20 MG/ML VIAL IVP PRN (10:29)
[2023-06-12] MEDS: INSULIN REGULAR, HUMAN 100 UNITS/ML, 3 ML VIAL (humuLIN R) SUBCUT PRN ×3 (11:22→23:21)
[2023-06-12] MEDS ORDERED: guaiFENesin/DEXTROMETHORPHAN 1 EACH TAB.ER.12H PO ONE (11:30)
[2023-06-12] MEDS: guaiFENesin/DEXTROMETHORPHAN 1 EACH TAB.ER.12H PO SCH (21:00)
[2023-06-12] MEDS: ERTAPENEM SODIUM 0.5 GM in NS 50 ML IV SCH (21:00)
[2023-06-12] MEDS ORDERED: guaiFENesin ER 600 MG TAB ONE (23:05)
[2023-06-12] MEDS: INSULIN GLARGINE 100 UNITS/ML, 10 ML VIAL SUBCUT SCH (23:23)
[2023-06-13] VITALS (7 sets, daily range): BP systolic 116–156; PULSE 52–98; RESP 16–18; TEMP 96.7–97.9; O2SAT 97–100
[2023-06-13 06:03] LABS: BASOPHILS % (AUTO) 0.1 % (0.0-2.0); EOSINOPHILS # (AUTO) 0.1 K/uL (0.0-0.4); EOSINOPHILS % (AUTO) 0.6 % (0.0-4.0); HEMATOCRIT 36.4 % (36-54); HEMOGLOBIN 11.6 g/dL (14.0-18.0); LYMPHOCYTES % (AUTO) 24.7 % (20.5-51.5); MEAN CORPUSCULAR HEMOGLOBIN 27 pg (27-31); MEAN CORPUSCULAR HGB CONC 32 % (32-36); MEAN CORPUSCULAR VOLUME 85 fL (79.0-98.0); MONOCYTES # (AUTO) 0.6 K/uL (0.0-1.0); MONOCYTES % (AUTO) 6.7 % (1.7-9.3); NEUTROPHILS # (AUTO) 5.6 K/uL (1.8-7.7); NEUTROPHILS % (AUTO) 67.9 % (40.0-70.0); PLATELET COUNT (AUTO) 286 K/uL (130-430); RED BLOOD CELL COUNT(AUTO) 4.27 MIL/uL (4.2-6.2); RED CELL DISTRIBUTION WIDTH 15.8 % (9.0-15.0); WHITE BLOOD COUNT (AUTO) 8.3 K/uL (4.8-10.8)
[2023-06-13 06:10] LABS: ALANINE AMINOTRANSFERASE 45 U/L (12-78); ALBUMIN 3.2 g/dL (3.4-4.8); ANION GAP 8 (5-15); ASPARTATE AMINOTRANSFERASE 30 U/L (10-37); CALCIUM 9.7 mg/dL (8.4-11.0); CARBON DIOXIDE 25 mmol/L (23-29); CHLORIDE 104 mmol/L (98-107); CREATININE 1.87 mg/dL (0.55-1.30); GLUCOSE 71 mg/dL (74-106); POTASSIUM 3.6 mmol/L (3.5-5.1); SODIUM SERUM 137 mmol/L (136-145); TOTAL BILIRUBIN 0.8 mg/dL (0.0-1.0); TOTAL PROTEIN, SERUM 6.3 g/dL (6.4-8.3); UREA NITROGEN, BLOOD 47 mg/dL (8-21)
[2023-06-13] MEDS: NACL 0.9% 1,000 ML IV SCH (06:24)
[2023-06-13] MEDS: PANTOPRAZOLE SODIUM 40 MG/VIAL (PROTONIX) IVP SCH (09:43)
[2023-06-13] MEDS: METHYLPREDNISOLONE SOD SUCC 40 MG/ML VIAL IVP SCH (09:43)
[2023-06-13] MEDS: TAMSULOSIN HCL 0.4 MG CAP PO SCH (09:43)
[2023-06-13] MEDS: HEPARIN SODIUM,PORCINE 5,000 UNITS/ML VIAL SUBCUT SCH ×2 (09:45→21:07)
[2023-06-13] MEDS: guaiFENesin/DEXTROMETHORPHAN 1 EACH TAB.ER.12H PO SCH ×2 (11:04→20:57)
[2023-06-13] MEDS: INSULIN REGULAR, HUMAN 100 UNITS/ML, 3 ML VIAL (humuLIN R) SUBCUT PRN ×3 (12:22→21:04)
[2023-06-13] MEDS: ERTAPENEM SODIUM 0.5 GM in NS 50 ML IV SCH (20:57)
[2023-06-13] MEDS: INSULIN GLARGINE 100 UNITS/ML, 10 ML VIAL SUBCUT SCH (21:06)
[2023-06-14] VITALS (7 sets, daily range): BP systolic 122–152; PULSE 48–77; RESP 16–22; TEMP 96.6–98.4; O2SAT 92–99
[2023-06-14 05:34] LABS: BASOPHILS % (AUTO) 0.5 % (0.0-2.0); EOSINOPHILS # (AUTO) 0.1 K/uL (0.0-0.4); EOSINOPHILS % (AUTO) 1.5 % (0.0-4.0); HEMATOCRIT 39.1 % (36-54); HEMOGLOBIN 12.7 g/dL (14.0-18.0); LYMPHOCYTES # (AUTO) 2.5 K/uL (1.0-5.5); LYMPHOCYTES % (AUTO) 34.4 % (20.5-51.5); MEAN CORPUSCULAR HEMOGLOBIN 28 pg (27-31); MEAN CORPUSCULAR HGB CONC 32 % (32-36); MEAN CORPUSCULAR VOLUME 85 fL (79.0-98.0); MONOCYTES # (AUTO) 0.5 K/uL (0.0-1.0); MONOCYTES % (AUTO) 6.2 % (1.7-9.3); NEUTROPHILS # (AUTO) 4.2 K/uL (1.8-7.7); NEUTROPHILS % (AUTO) 57.4 % (40.0-70.0); PLATELET COUNT (AUTO) 294 K/uL (130-430); RED CELL DISTRIBUTION WIDTH 15.9 % (9.0-15.0); WHITE BLOOD COUNT (AUTO) 7.4 K/uL (4.8-10.8)
[2023-06-14 05:57] LABS: ALANINE AMINOTRANSFERASE 60 U/L (12-78); ALBUMIN 3.3 g/dL (3.4-4.8); ANION GAP 9 (5-15); ASPARTATE AMINOTRANSFERASE 39 U/L (10-37); CALCIUM 9.8 mg/dL (8.4-11.0); CARBON DIOXIDE 25 mmol/L (23-29); CHLORIDE 101 mmol/L (98-107); CREATININE 1.71 mg/dL (0.55-1.30); GLUCOSE 124 mg/dL (74-106); SODIUM SERUM 135 mmol/L (136-145); TOTAL BILIRUBIN 1.1 mg/dL (0.0-1.0); TOTAL PROTEIN, SERUM 6.8 g/dL (6.4-8.3); UREA NITROGEN, BLOOD 35 mg/dL (8-21)
[2023-06-14] MEDS: PANTOPRAZOLE SODIUM 40 MG/VIAL (PROTONIX) IVP SCH (10:53)
[2023-06-14] MEDS: TAMSULOSIN HCL 0.4 MG CAP PO SCH (10:53)
[2023-06-14] MEDS: HEPARIN SODIUM,PORCINE 5,000 UNITS/ML VIAL SUBCUT SCH ×2 (10:55→20:11)
[2023-06-14] MEDS: guaiFENesin/DEXTROMETHORPHAN 1 EACH TAB.ER.12H PO SCH ×2 (11:16→20:10)
[2023-06-14] MEDS: INSULIN REGULAR, HUMAN 100 UNITS/ML, 3 ML VIAL (humuLIN R) SUBCUT PRN ×3 (11:50→20:25)
[2023-06-14] MEDS: ERTAPENEM SODIUM 0.5 GM in NS 50 ML IV SCH (20:09)
[2023-06-14] MEDS: NACL 0.9% 1,000 ML IV SCH (20:10)
[2023-06-14] MEDS: INSULIN GLARGINE 100 UNITS/ML, 10 ML VIAL SUBCUT SCH (20:24)
[2023-06-15] VITALS (8 sets, daily range): BP systolic 130–149; PULSE 69–89; RESP 8–18; TEMP 97.7–98.4; O2SAT 92–100
[2023-06-15] MEDS: NACL 0.9% 1,000 ML IV SCH (08:50)
[2023-06-15] MEDS: TAMSULOSIN HCL 0.4 MG CAP PO SCH (08:50)
[2023-06-15] MEDS: guaiFENesin/DEXTROMETHORPHAN 1 EACH TAB.ER.12H PO SCH ×2 (08:50→20:55)
[2023-06-15] MEDS: HEPARIN SODIUM,PORCINE 5,000 UNITS/ML VIAL SUBCUT SCH ×2 (08:51→21:03)
[2023-06-15] MEDS: PANTOPRAZOLE SODIUM 40 MG/VIAL (PROTONIX) IVP SCH (08:51)
[2023-06-15] MEDS: INSULIN REGULAR, HUMAN 100 UNITS/ML, 3 ML VIAL (humuLIN R) SUBCUT PRN ×3 (11:31→21:04)
[2023-06-15] MEDS: ERTAPENEM SODIUM 0.5 GM in NS 50 ML IV SCH (20:55)
[2023-06-15] MEDS: INSULIN GLARGINE 100 UNITS/ML, 10 ML VIAL SUBCUT SCH (21:03)
[2023-06-16] VITALS (8 sets, daily range): BP systolic 120–148; PULSE 66–81; RESP 16–18; TEMP 97.6–98.8; O2SAT 94–100
[2023-06-16 05:54] LABS: BASOPHILS % (AUTO) 0.4 % (0.0-2.0); EOSINOPHILS # (AUTO) 0.2 K/uL (0.0-0.4); EOSINOPHILS % (AUTO) 3.1 % (0.0-4.0); HEMATOCRIT 39.7 % (36-54); HEMOGLOBIN 13.1 g/dL (14.0-18.0); LYMPHOCYTES # (AUTO) 2.8 K/uL (1.0-5.5); LYMPHOCYTES % (AUTO) 35.9 % (20.5-51.5); MEAN CORPUSCULAR HEMOGLOBIN 28 pg (27-31); MEAN CORPUSCULAR HGB CONC 33 % (32-36); MEAN CORPUSCULAR VOLUME 85 fL (79.0-98.0); MONOCYTES # (AUTO) 0.7 K/uL (0.0-1.0); MONOCYTES % (AUTO) 8.5 % (1.7-9.3); NEUTROPHILS # (AUTO) 4.1 K/uL (1.8-7.7); NEUTROPHILS % (AUTO) 52.1 % (40.0-70.0); PLATELET COUNT (AUTO) 325 K/uL (130-430); RED BLOOD CELL COUNT(AUTO) 4.64 MIL/uL (4.2-6.2); RED CELL DISTRIBUTION WIDTH 16.2 % (9.0-15.0); WHITE BLOOD COUNT (AUTO) 7.9 K/uL (4.8-10.8)
[2023-06-16 06:05] LABS: ALANINE AMINOTRANSFERASE 76 U/L (12-78); ALBUMIN 3.1 g/dL (3.4-4.8); ANION GAP 7 (5-15); ASPARTATE AMINOTRANSFERASE 44 U/L (10-37); CALCIUM 9.6 mg/dL (8.4-11.0); CARBON DIOXIDE 26 mmol/L (23-29); CHLORIDE 102 mmol/L (98-107); CREATININE 1.83 mg/dL (0.55-1.30); GLUCOSE 80 mg/dL (74-106); SODIUM SERUM 135 mmol/L (136-145); TOTAL BILIRUBIN 0.8 mg/dL (0.0-1.0); TOTAL PROTEIN, SERUM 6.8 g/dL (6.4-8.3); UREA NITROGEN, BLOOD 28 mg/dL (8-21)
[2023-06-16] MEDS: NACL 0.9% 1,000 ML IV SCH (08:50)
[2023-06-16] MEDS: PANTOPRAZOLE SODIUM 40 MG/VIAL (PROTONIX) IVP SCH (09:05)
[2023-06-16] MEDS: TAMSULOSIN HCL 0.4 MG CAP PO SCH (09:10)
[2023-06-16] MEDS: guaiFENesin/DEXTROMETHORPHAN 1 EACH TAB.ER.12H PO SCH (09:11)
[2023-06-16] MEDS: HEPARIN SODIUM,PORCINE 5,000 UNITS/ML VIAL SUBCUT SCH (09:13)
[2023-06-16] MEDS ORDERED: DAPA5TAB PO (11:28)
[2023-06-16] MEDS ORDERED: INSU100I70 SUBCUT (11:28)
[2023-06-16] MEDS ORDERED: TAMS0.4C96 PO (11:28)
[2023-06-16] MEDS ORDERED: ERTA1VIA3 INJ (11:28)
[2023-06-16] MEDS: INSULIN REGULAR, HUMAN 100 UNITS/ML, 3 ML VIAL (humuLIN R) SUBCUT PRN (11:33)
[2023-06-16] MEDS: ERTAPENEM SODIUM 0.5 GM in NS 50 ML IV SCH (14:10)
== END 2023-06-16 16:50 | disposition home health service (06) | DRG 871 ==
LOC: SED 22:13 → SMU 06-04 01:06 → SIC 06-06 16:54 → STU 06-12 17:53 → SMU 06-14 19:54
PROVIDERS: ADMIT Specialist; ATTEND Specialist
PROC: 5A0935A Assistance with Respiratory Ventilation, Less than 24 Consecutive Hours, High Flow/Velocity Cannula (ICD-10-PCS; 2023-06-06)
PROC: 5A0935A Assistance with Respiratory Ventilation, Less than 24 Consecutive Hours, High Flow/Velocity Cannula (ICD-10-PCS; 2023-06-07)
PROC: 5A0935A Assistance with Respiratory Ventilation, Less than 24 Consecutive Hours, High Flow/Velocity Cannula (ICD-10-PCS; 2023-06-08)
PROC: 5A0935A Assistance with Respiratory Ventilation, Less than 24 Consecutive Hours, High Flow/Velocity Cannula (ICD-10-PCS; 2023-06-09)
PROC: 02HV33Z Insertion of Infusion Device into Superior Vena Cava, Percutaneous Approach (ICD-10-PCS; principal; 2023-06-14)
PROC: B548ZZA Ultrasonography of Superior Vena Cava, Guidance (ICD-10-PCS; 2023-06-14)
DX: A41.51 Sepsis due to Escherichia coli [E. coli] (principal); J96.01 Acute respiratory failure with hypoxia; N13.6 Pyonephrosis; E87.1 Hypo-osmolality and hyponatremia; N17.9 Acute kidney failure, unspecified; N18.4 Chronic kidney disease, stage 4 (severe); E44.0 Moderate protein-calorie malnutrition; I12.9 Hypertensive chronic kidney disease with stage 1 through stage 4 chronic kidney disease, or unspecified chronic kidney disease; N18.9 Chronic kidney disease, unspecified; I25.10 Atherosclerotic heart disease of native coronary artery without angina pectoris; Z20.822 Contact with and (suspected) exposure to COVID-19; G47.00 Insomnia, unspecified; E78.5 Hyperlipidemia, unspecified; E55.9 Vitamin D deficiency, unspecified; E11.51 Type 2 diabetes mellitus with diabetic peripheral angiopathy without gangrene; D64.9 Anemia, unspecified; R65.20 Severe sepsis without septic shock; K21.9 Gastro-esophageal reflux disease without esophagitis; N40.0 Benign prostatic hyperplasia without lower urinary tract symptoms; E86.1 Hypovolemia; E11.22 Type 2 diabetes mellitus with diabetic chronic kidney disease; E88.09 Other disorders of plasma-protein metabolism, not elsewhere classified; R31.9 Hematuria, unspecified; F32.9 Major depressive disorder, single episode, unspecified; E11.65 Type 2 diabetes mellitus with hyperglycemia; Z90.79 Acquired absence of other genital organ(s); Z79.4 Long term (current) use of insulin; Z79.899 Other long term (current) drug therapy; Z68.26 Body mass index [BMI] 26.0-26.9, adult
CPT/HCPCS: 36415; 36600; 71045; 76376; 78579; 78580-TC; 80048; 80053; 81000; 81001; 81015; 82803; 82962; 83037; 83605; 83735; 84100; 85025; 85651-TC; 85730-TC; 87040; 87081; 87086; 94640; 94760; 96360; 97110-GP; 97116-GP; 97530-GP; 99285; A9539; A9540; C9113; J0360; J0692; J0696; J1030; J1335; J1644; J1815; J1940; J2185; J2405; J7060